=== PATIENT | male | born 1995 | race Caucasian/White ===

== ENCOUNTER 2017-08-16 16:57 | Emergency (ER) | payer OTHER ==
[2017-08-16 17:16] VITALS: BP 144/79
[2017-08-16] MEDS ORDERED: Acyclovir* 200 MG CAP PO ONE (17:37)
--- NOTE | 2017-08-16 17:53 | UC ---
Skin Complaint HPI - HPI Summary HPI Summary: PT NOTICED SOME BURNING DISCOMFORT LEFT SIDE OF CHIN YESTERDAY. TODAY NOTICED A SORE, RED SPOT THAT WAS OOZING CLEAR FLUID. HAS HAD COLD SORES ON HIS LIPS. DENIES FEVER OR OTHER SKIN LESIONS. NO TRAUMA. NO GARCIA. - History of Current Complaint Chief Complaint: UCSkin Time Seen by Provider: 08/16/17 17:20 Stated Complaint: RASH CHIN Hx Obtained From: Patient Onset/Duration: Gradual Onset, Lasting Days Timing: Constant Onset Severity: Moderate Current Severity: Moderate Pain Intensity: 0 Pain Scale Used: 0-10 Numeric Location: Face - CHIN Character: Pain, Redness Aggravating Factor(s): Touch Alleviating Factor(s): Nothing Associated Signs & Symptoms: Positive: Drainage, Tenderness - Allergy/Home Medications Allergies/Adverse Reactions: Allergies Allergy/AdvReac Type Severity Reaction Status Date / Time No Known Allergies Allergy Verified 08/16/17 17:16 Home Medications: Home Medications Cetirizine* [ZyrTEC 10 MG TAB*] 1 tab PO DAILY 08/16/17 [History Confirmed 08/16] Review of Systems Constitutional: Negative Skin: Other - CHIN LESION Respiratory: Negative Cardiovascular: Negative Gastrointestinal: Negative All Other Systems Reviewed And Are Negative: Yes PMH/Surg Hx/FS Hx/Imm Hx Previously Healthy: Yes - Surgical History Surgical History: None - Family History Known Family History: Positive: Hypertension - Social History Alcohol Use: Occasionally Substance Use Type: None Smoking Status (MU): Never Smoked Tobacco Physical Exam Triage Information Reviewed: Yes Appearance: Well-Appearing, No Pain Distress, Well-Nourished Vital Signs: Initial Vital Signs Temp 97.2 F 08/16/17 17:13 Pulse 68 08/16/17 17:13 Resp 18 08/16/17 17:13 BP 144/79 08/16/17 17:13 Pulse Ox 100 08/16/17 17:13 Vital Signs Reviewed: Yes Eyes: Positive: Conjunctiva Clear ENT: Positive: Hearing grossly normal Neck: Positive: Supple Respiratory: Positive: No respiratory distress, No accessory muscle use Cardiovascular: Positive: Pulses Normal Abdomen Description: Positive: Soft Musculoskeletal: Positive: No Edema Neurological: Positive: Alert Psychological: Positive: Age Appropriate Behavior Skin: Positive: Other - 1CM ERYTHEMATOUS LESION LEFT CHIN OOZING CLEAR FLUID. MILDLY TENDER. Course/Dx - Course Course Of Treatment: POSSIBLE HERPES. SWAB SENT FOR VZV/HSV. TREAT EMPIRICALLY WITH VALTREX. COUNSELED ON CONTAGION. - Diagnoses Provider Diagnoses: SKIN LESION, CHIN Discharge - Discharge Plan Condition: Stable Disposition: HOME Prescriptions: ValACYclovir (*) [Valtrex 1 GM(*)] 2 gm PO BID #4 tab Referrals: [facility] - Jeremias ROMERO [Medical Doctor] - If Needed Additional Instructions: THE LESION ON YOUR CHIN MAY BE A HERPES LESION. TAKE THE VALTREX 2 DOSES TOMORROW. SWAB SENT FOR VIRAL CULTURE. AVOID CONTACT WITH OTHER PEOPLE DUE TO POSSIBLE CONTAGION.
[2017-08-19 21:45] LABS: Varicella Zoster Result Negative (Negative)
== END 2017-08-16 17:50 | disposition home or self-care (01) ==
LOC: UCEAST 16:57
DX: L98.9 Disorder of the skin and subcutaneous tissue, unspecified (principal)
CPT/HCPCS: 87529; 87798; 99202; A9270-GY; G0463

== ENCOUNTER 2018-01-25 12:58 | Emergency (ER) | payer OTHER ==
[2018-01-25 13:21] VITALS: BP 128/81
[2018-01-25] MEDS ORDERED: methylPREDNISolone 125 MG* 2 ML VIAL IM ONE (13:34)
[2018-01-25] MEDS ORDERED: Erythromycin OPTH OINT* APPLIC OINT BOTH EYES ONE (13:35)
--- NOTE | 2018-01-25 13:47 | UC ---
Eye Complaint HPI - HPI Summary HPI Summary: patient was in [place] for the week, developed pink eye and was treated yesterday, began to get itching and increased pain in the eyes after using polytrim drops, the area around the eyes are red and swollen, conjunctiva is irritated. no change in vision. patient is sexually active and has not been tested for STD, - History of Current Complaint Chief Complaint: UCEye Stated Complaint: EYE COMPLAINT Time Seen by Provider: 01/25/18 13:22 Hx Obtained From: Patient Onset/Duration: Sudden Onset, Lasting Days - 2 Timing: Constant Severity Initially: Mild Severity Currently: Severe Pain Intensity: 8 Location of Injury: Conjunctiva, Eye Lid (lower), Eye Lid (upper), Sclera Character: Throbbing, Foreign Body Sensation Aggravating Factor(s): Light, Eye Drops, Blinking, Ultraviolet Exposure Alleviating Factor(s): Darkness Associated Signs And Symptoms: Positive: Photophobia, Drainage (Purulent), Swelling - Allergies/Home Medications Allergies/Adverse Reactions: Allergies Allergy/AdvReac Type Severity Reaction Status Date / Time No Known Allergies Allergy Verified 01/25/18 13:21 Home Medications: Home Medications Polymyx/Trimethoprim OPTH* [Polytrim OPHTH*] 1 drop BOTH EYES Q3H 01/25/18 [ History Confirmed 01/25/18] PMH/Surg Hx/FS Hx/Imm Hx Previously Healthy: Yes - Surgical History Surgical History: Yes Surgery Procedure, Year, and Place: rt ankle - Family History Known Family History: Positive: Hypertension - Social History Alcohol Use: Rare Substance Use Type: None Smoking Status (MU): Never Smoked Tobacco Review of Systems Constitutional: Negative Skin: Negative Eyes: Drainage, Eye Redness, Photophobia ENT: Negative Respiratory: Negative Cardiovascular: Negative Gastrointestinal: Negative Genitourinary: Negative Motor: Negative Neurovascular: Negative Musculoskeletal: Negative Neurological: Negative Psychological: Negative Is Patient Immunocompromised?: No All Other Systems Reviewed And Are Negative: Yes Physical Exam Triage Information Reviewed: Yes Appearance: Well-Nourished, Ill-Appearing, Pain Distress Vital Signs: Initial Vital Signs Temp 97.0 F 01/25/18 13:16 Pulse 76 01/25/18 13:16 Resp 18 01/25/18 13:16 BP 128/81 01/25/18 13:16 Pulse Ox 100 04/08/18 13:16 Vital Signs Reviewed: Yes Eyes: Positive: Conjunctiva Inflamed, Discharge, Other: - upper and lower lids are red and swollen, patient tolerated pen light exam without difficulty, irriation of xiang sclera is diffuse. ENT Exam: Normal Dental Exam: Normal Neck exam: Normal Respiratory Exam: Normal Respiratory: Positive: Chest non-tender, Lungs clear, Normal breath sounds Cardiovascular Exam: Normal Cardiovascular: Positive: RRR, No Murmur, Pulses Normal Abdominal Exam: Normal Abdomen Description: Positive: Nontender, No Organomegaly, Soft Bowel Sounds: Positive: Present Musculoskeletal Exam: Normal Neurological Exam: Normal Psychological Exam: Normal Skin Exam: Normal Eye Complaint Course/Dx - Course Course Of Treatment: hx obtained, exam performed ,meds reviewed, due to + sexual behavior and the copious amount of drainage will due a culture to rule out gonnorhea. Prednisone given for possible allergic reaction to polytrim, started on erythromycin ointment - Differential Dx/Diagnosis Differential Diagnosis/HQI/PQRI: Conjunctivitis, Corneal Abrasion, Foreign Body , Hyphema, Keratitis, Periorbital Cellulitis, Orbital Cellulitis, Other - gonnorhea Provider Diagnoses: bilateral conjuncitivis. possible gonnorhea vs allergic reaction to medication Discharge - Sign-Out/Discharge Documenting (check all that apply): Discharge - Discharge Plan Condition: Stable Disposition: HOME Referrals: No Primary Care Phys,NOPCP [Primary Care Provider] - Additional Instructions: 1. continue with the erythromycin ointment three times a day for 7 days. 2. I recommend follow up with [facility] [place] in the next 24 - 48 hours if symtpoms are not improving. 3. the culture will be available in 48-72 hours. we call with any positive results. - Billing Disposition and Condition Condition: STABLE Disposition: HOME
== END 2018-01-25 14:23 | disposition home or self-care (01) ==
LOC: UCEAST 12:58
DX: H10.33 Unspecified acute conjunctivitis, bilateral (principal)
CPT/HCPCS: 87070; 87205; 96372; 99212; A9270-GY; G0463; J2930